=== PATIENT | male | born 1930 | race Caucasian/White ===

== ENCOUNTER 2016-08-30 10:42 | Inpatient (IN) | payer MEDICARE, OTHER ==
[~2016-08-30] VITALS: Ht 167.6 cm; Wt 86.8 kg
[2016-08-30] VITALS (11 sets, daily range): BP systolic 112–182; BP diastolic 65–101; PULSE 70–91; RESP 18–26; O2SAT 91–99
[~2016-08-30 10:42] MED LIST: AMLO10TA5; OMPR20CCR; VALS1TAB31; ZOC20
--- NOTE | 2016-08-30 10:44 | ED.REPORT ---
HPI-Dyspnea / Wheezing Date of Service Aug 30, 2016 ED Provider: Salomon Castillo Patient is an 86 year old male with a hx of prostate cancer who presents to the ED via EMS for respiratory distress onset this morning. He has had an upper respiratory infection for the last new days including a non-productive cough and increasing weakness. He denies chest pain, fever, or any other symptoms. He was given a DuoNeb en route with relief. He does not have a hx of CHF. On initial evaluation by EMS he had a room air saturation in the 70s with markedly dyspneic and diaphoretic. Some improvement with nebulized bronchodilators and oxygen, however with minimal exertion needed to get him onto the EMS gurney he had an acute respiratory decompensation and was started on CPAP. He improved rapidly on CPAP. On arrival here we were able to discontinue the CPAP and continue on supplement oxygen without decompensation. Not been having chest pain. Denies fevers or cough. Nursing Notes Stated Complaint: RESPIRATORY DISTRESS Chief Complaint: Respiratory Distress Nursing Notes Reviewed: Yes Allergies: Coded Allergies: No Known Allergies (Verified , 08/30/16) Scheduled Aspirin (Aspirin) 81 Mg Tablet 81 MG PO HS Azilsartan Med/Chlorthalidone 40-25 mg (Edarbyclor 40-25 mg) 1 Each Tablet 1 TABLET PO DAILY Metoprolol Succinate ER (Toprol XL) 25 Mg Tablet 25 MG PO DAILY Omeprazole (Omeprazole) 20 Mg Capsule.dr 20 MG PO DAILY Simvastatin (Simvastatin) 20 Mg Tablet 20 MG PO HS General Time Seen by MD: 10:43 Chief Complaint Shortness of breath Hx Obtained From: Patient, EMS Arrived By: Ambulance Sudden in Onset?: Yes Onset Occurred: 1 - 4 hours ago Symptom Duration: Since onset Past Medical History Past Medical History Prostate cancer Past Surgical History R shoulder Smoking History Former Smoker Ambulatory Status Independent Review of Systems Constitutional: Reports: Weakness - generalized, Denies: Fever Respiratory: Reports: Non-productive cough, Shortness of breath Cardiovascular: Denies: Chest pain Complete sys rev & neg: except as marked. Physical Exam Initial Vital Signs Vital Signs (First) Date Time Temp Pulse Resp B/P Pulse Ox O2 Delivery O2 Flow Rate FiO2 08/30/16 10:51 36.0 91 26 182/101 91 Room Air 08/30/16 11:16 2 Initial VS: Reviewed Head / Eyes: Atraumatic, Normocephalic Skin: Warm, Dry Neurologic: Alert, Oriented, Nonfocal Psychiatric: Mood/affect normal, Behavior normal, Normal thought content General/Constitutional: Awake, Alert Distress / Hydration: Positive: Distress mild Neck: Full range of motion Respiratory / Chest: No wheezing diffusely poor air movement diminish breath sounds on R Cardiovascular: Heart rate NL, Regular rhythm, Heart sounds NL, No gallop, No murmurs, No rubs Distant heart tones Skin: Color NL, Warm Color / Condition: Positive: Diaphoresis present Interpretation & Diagnostics Lab Results Interpretation Result Diagram: 08/30/16 1046 08/30/16 1046 Test 08/30/16 10:46 08/30/16 12:04 White Blood Count 11.0th/mm3 (3.8-10.1) Red Blood Count 4.69mil/mm3 (4.40-5.80) Hemoglobin 14.8g/dL (13.8-17.2) Hematocrit 42.9% (41.0-50.0) Mean Corpuscular Volume 91.5fL (81-100) Mean Corpuscular Hemoglobin 31.6pg (27.0-35.0) Mean Corpuscular Hemoglobin Concent 34.5% (32.0-37.0) Red Cell Distribution Width 14.1% (12.3-15.4) Platelet Count 188bil/L (150-400) Neutrophils (%) (Auto) 62.5% (40-74) Lymphocytes (%) (Auto) 26.2% (14-46) Monocytes (%) (Auto) 9.1% (4-12) Eosinophils (%) (Auto) 1.8% (0-5) Basophils (%) (Auto) 0.2% (0-3) D-Dimer 1.17mg/L FEU (<0.50) Sodium Level 135mEq/L (134-144) Potassium Level 4.8mEq/L (3.5-5.2) Chloride Level 95mEq/L (97-108) Carbon Dioxide Level 21mmol/L (18-29) Blood Urea Nitrogen 15mg/dL (8-27) Creatinine 0.97mg/dL (0.76-1.27) Estimat Glomerular Filtration Rate 78mL/min (>59) Glucose Level 154mg/dL (60-99) Calcium Level 9.4mg/dL (8.5-10.1) Total Bilirubin 0.6mg/dL (0.0-1.2) Aspartate Amino Transf (AST/SGOT) 25U/L (0-50) Alanine Aminotransferase (ALT/SGPT) 13U/L (0-44) Alkaline Phosphatase 97U/L (25-160) Troponin T 0.010ug/L (0.0-0.011) Pro-B-Type Natriuretic Peptide 4902pg/mL (0-486) Total Protein 7.2g/dL (6.4-8.4) Albumin 4.0g/dL (3.4-5.0) Urine Color Yellow (YELLOW) Urine Appearance Hazy (CLEAR,HAZY) Urine pH 6.5 (5.0-8.0) Urine Specific [place] 1.020 (1.003-1.035) Urine Protein 30mg/dL (NEG,TRACE) Urine Glucose (UA) Negativemg/dL (NEGATIVE) Urine Ketones 15mg/dL (NEGATIVE) Urine Occult Blood Negative (NEGATIVE) Urine Nitrite Negative (NEGATIVE) Urine Bilirubin Negative (NEGATIVE) Urine Urobilinogen 2.0mg/dL (NORMAL) Urine Leukocyte Esterase Negative (NEGATIVE) Urine RBC 0-2/hpf (0-2) Urine WBC 0-5/hpf (0-5) Urine Epithelial Cells Occasional/hpf (NONE-MOD) Urine Crystals None seen (NONE SEEN) Urine Bacteria Few/hpf (NONE-FEW) Urine Hyaline Casts None/lpf (NONE) Urine Granular Casts None seen (NONE SEEN) Urine Waxy Casts None seen (NONE SEEN) Urine Red Blood Cell Casts None seen (NONE SEEN) Urine White Blood Cell Casts None seen (NONE SEEN) Urine Mucus Present (None Seen) Urine Trichomonas None seen (NONE SEEN) Urine Yeast Few (NONE SEEN) Urine Culture Reflexed Not indicated Hold Urine Received (Received) Lab Results Interpretation: Seemingly normal Echo and myocardial perfusion study in 2014 ECG Interpretation ECG Interpretation: Sinus rate 82 ventricular premature complex RBBB inferior infarct, old Time: 11:10 Interpreted by: ED physician ABG Interpretation ABG Interpretation: pH 7.444 pCO2 40 pO2 74.4 cHCO3- 27.5 cBase 3.2 alkalotic with a normal CO2. Suggests a mixed process Exam Performed by: Allied health pract Exam Interpreted by: ED physician Indication: Respiratory distress X-Ray Chest Interpretation Chest Xray Interpretation: IMPRESSION: 1. Cardiomegaly with congestive heart failure. Possibility of superimposed or underlying pneumonia cannot be excluded. Dictated by: Michele Cintron M.D. on 08/30/2016 at 11:11 Approved by: Michele Cintron M.D. on 08/30/2016 at 11:13 View: Portable, 1 view Interpretation / Wet Read by: Interpret - Radiologist CT Chest Interpretation IMPRESSION: 1. Exam is negative for pulmonary embolic disease. 2. Diffuse pulmonary edema and moderate bilateral pleural effusions. 3. Atheromatous vascular disease with calcified, tortuous aorta and presence of coronary artery calcifications. No evidence of aortic dissection. The ascending aorta is borderline aneurysmal at 4.0 cm. Dictated by: Michele Cintron M.D. on 08/30/2016 at 13:26 Approved by: Michele Cintron M.D. on 08/30/2016 at 13:32 Study type: CT pulm angiogram Interpretation / Wet Read by: Interpret - Radiologist Re-Eval/Medical Decision Med Decision/Clinical Course 86-year-old male with new onset congestive failure. Initial troponin is negative. Given Lasix 20 mg IV and nitro paste is applied. Also received nebulized bronchodilators and initial stabilization. Respiratory symptoms have improved, he is tolerating DC of CPAP. Admitted to the hospitalist service. Re-Evaluation/Progress : Time of Eval: 12:08 )( Re-Eval Resp / Chest: No wheezing Re-Evaluation/Progress Note: Discussed plan for admission. Patient understands and agrees with plan. All questions addressed at this time. Consultation : Referral / Consult Name: Fahad Gregg MD Consulted With: Hospitalist Call Returned at: 14:27 [employer] Instructor: Will see patient, Agrees with eval, Agrees with plan, Accepts admit Note: Discussed pt's case. Accepts admit. Counseled Regarding: Diagnosis, Lab results, Need for admission Discharge & Departure Impression: Primary Impression: Dyspnea Dyspnea type: shortness of breath Qualified Code: R06.02 - Shortness of breath Disposition: ADMITTED TO HOSPITAL Discharge Condition All VS Reviewed: Yes Condition: Stable Referrals: Hema Ramirez MD (PCP) [facility] (Family) Scribe Attestation Portions of this note were transcribed by Latrice Curtis. I, Dr. Castillo personally performed the history, physical exam and medical decision-making; I reviewed and confirmed the accuracy of the information in the transcribed note. Signed by: Latrice Curtis 08/30/2016, [id number] copies to: Hema Ramirez MD, Donald L MD Aug 30, 2016 10:44 LATRICE CURTIS Aug 30, 2016 10:51
[2016-08-30] MEDS ORDERED: Albuterol-Ipratropium 3 mL Inhalation Solution ONE (10:50)
[2016-08-30] MEDS ORDERED: Albuterol-Ipratropium 3 mL Inhalation Solution NEB ONE (10:50)
[2016-08-30] MEDS ORDERED: Albuterol 2.5 mg/3 mL Inhalation Solution NEB ONE ×2 (10:50)
[2016-08-30 10:57] LABS: BASOPHILS % (AUTO) 0.2 % (0-3); EOSINOPHILS % (AUTO) 1.8 % (0-5); MONOCYTES % (AUTO) 9.1 % (4-12); Mean Corpuscular Hemoglobin 31.6 pg (27.0-35.0); Mean Corpuscular Volume 91.5 fL (81-100); NEUTROPHILS % (AUTO) 62.5 % (40-74); Platelet Count 188 bil/L (150-400)
--- NOTE | 2016-08-30 11:15 | DRSVH ---
PROCEDURE: X-RAY CHEST ONE VIEW, PORTABLE ([id number]) INDICATIONS: SOB TECHNIQUE: One view of the chest was acquired. COMPARISON: 09/20/2007 FINDINGS: Surgical changes and devices: None. Lungs and pleura: No pleural effusions or pneumothorax. There is diffuse increase in interstitial ma rkings with presence of septal lines at the lung bases, consistent with pulmonary edema. Mediastinum: Mediastinal contours appear normal. Heart size is mildly enlarged. Aortic calcificatio ns and tortuosity. Bones and chest wall: No suspicious bony lesions. Overlying soft tissues appear unremarkable. IMPRESSION: 1. Cardiomegaly with congestive heart failure. Possibility of superimposed or underlying pneumonia ca nnot be excluded. Dictated by: Michele Cintron M.D. on 08/30/2016 at 11:11 Approved by: Michele Cintron M.D. on 08/30/2016 at 11:13
[2016-08-30 11:22] LABS: TROPONIN T 0.01 ug/L (0.0-0.011)
[2016-08-30] MEDS ORDERED: ASPI-973 PO (11:30)
[2016-08-30] MEDS ORDERED: AZIL1TAB3 PO (11:30)
[2016-08-30] MEDS ORDERED: METO25TA3 PO (11:30)
[2016-08-30] MEDS ORDERED: Nitroglycerin 2% 1 Gm Ointment TOPICAL SCH (11:40)
[2016-08-30] MEDS ORDERED: Furosemide 10 mg/mL 2 mL Inj IVPUSH ONE ×2 (11:40→20:00)
--- NOTE | 2016-08-30 12:17 | ABG ---
DateTimeAnalyzed 12:09:32 -_ pH ____7.444 - 7.350 7.450 pCO2 ___40.2__ -mmHg 35.0 45.0 pO2 ___74.4__ -mmHg 69.0 116 HCO3- ___27.5__ -mmol/L 22.0 26.0 ABE ____3.2__ -mmol/L tHb ___13.8__ -g/dL O2Hb ___93.9__ -% COHb ____1.5__ -% 1.5 MetHb ____0.0__ -% sO2 ___95.2__ -% FIO2 ___21.0__ -% Drawn By RS - Date/Time Notified____ 12:17:00 -_ Notified By RS - Notified Whom SLACK, DON - K+ ____3.3__ -mmol/L tO2 ___18.2__ -Vol% Balbir test N/A -
--- NOTE | 2016-08-30 13:34 | DRSVH ---
PROCEDURE: CT ANGIO CHEST PULMONARY EMBOLISM ([id number]) INDICATIONS: dyspnea elevated dimer TECHNIQUE: After the administration of intravenous contrast, 2 mm thick sections acquired from the pulmonary api donald to the posterior costophrenic angles. 3-dimensional maximum intensity projection (MIP) coronal a nd sagittal reformats were then acquired through the thorax. For radiation dose reduction, the follo wing was used: automated exposure control, adjustment of mA and/or kV according to patient size. COMPARISON: Chest 08/30/2016 FINDINGS: Image quality: Excellent. Pulmonary arteries: Pulmonary arteries are normal in size, and demonstrate no intraluminal filling d efects to suggest central pulmonary embolism. Lungs and pleura: Bilateral pulmonary edema and moderate bilateral pleural effusions Mediastinum: Heart size is normal, without pericardial effusion. Coronary artery calcifications. No mediastinal or hilar adenopathy. Thoracic aorta is 4.0 cm in caliber, normal in enhancement. Esoph jone is normal in caliber, without hiatal hernia. Bones and chest wall: No suspicious bony lesions. Ribs and thoracic spine appear intact throughout. Thyroid gland appear normal. No axillary or supraclavicular adenopathy. Abdomen: Visualized upper abdominal solid organs appear normal in the early arterial phase of enhanc ement. Splenic calcifications. IMPRESSION: 1. Exam is negative for pulmonary embolic disease. 2. Diffuse pulmonary edema and moderate bilateral pleural effusions. 3. Atheromatous vascular disease with calcified, tortuous aorta and presence of coronary artery calci fications. No evidence of aortic dissection. The ascending aorta is borderline aneurysmal at 4.0 cm. Dictated by: Michele Cintron M.D. on 08/30/2016 at 13:26 Approved by: Michele Cintron M.D. on 08/30/2016 at 13:32
[2016-08-30] MEDS ORDERED: OMEP20CA11 PO (13:36)
[2016-08-30] MEDS ORDERED: SIMV20TA4 PO (13:36)
[2016-08-30] MEDS ORDERED: AZIL1TAB2 PO (13:36)
[2016-08-30 13:57] LABS: APPEARANCE,URINE HAZY (CLEAR,HAZY); COLOR,URINE YELLOW (YELLOW); OCCULT BLOOD,URINE NEGATIVE (NEGATIVE); PH,URINE 6.5 (5.0-8.0)
[2016-08-30 13:58] LABS: YEAST,URINE FEW (NONE SEEN)
[2016-08-30] MEDS ORDERED: Ondansetron 2 mg/mL 2 mL Inj IVPUSH PRN (14:30)
--- NOTE | 2016-08-30 15:34 | PCM.HPMED ---
Subjective Date of Service Aug 30, 2016 Primary Provider: Admitting Physician: Fahad Gregg MD Primary Care Physician: Hema Ramirez MD Attending Physician: Fahad Gregg MD Chief Complaint: sudden onset SOB History of Present Illness: 86yo healthy community dwelling male with HTN, HLD, GERD, hx of prostate CA, no cardiac dz p/w acute onset difficulty breathing starting this morning Patient was usual state of health until 3-4 days ago, started having sore throat , stuffy nose initially, then it developed to dry cough. Patient denied fever, chills. Patient thought that he was recovering from flu as yesterday patient was doing okay without any difficulty breathing, patient had good appetite, eating well. This morning when he woke up, patient was in acute distress because of difficulty breathing, asked her to call his primary doctor, but unable to reach, as symptom persist, called 911. EMS reported that patient was hypoxic to 70%, severely diaphoretic with labored breathing, put him on CPAP. pt denied chest pain, nausea, vomiting. ED VS initially still mildly hypoxic 91% on room air, hypertensive to 180s, [id number], afebrile. pt received multiple nebulizer treatment, lasix 20mg iv. nitroglycerin paste was placed. CT and U chest obtained due to concern for PE, returned to negative PE but it showed bilateral pleural effusion and pulmonary edema. During her interview in ED, patient looked comfortable without labored breathing , patient thinks that combination of left leg treatment and Lasix helped him a lot. Patient denied having cardiac disease in the past, had stress test a few years ago by Dr. Cuenca, because of abnormal EKG, the result was normal. Patient is taking all of his medicine regularly, denied taking pills to smoking. Patient denied gaining weight, rather patient lowest weight delivery early with healthy diet and exercise. Patient is using one pillow, having no problems sleeping in the night, denied coughing at night. Review of Systems: Pertinent positives as noted in history of present illness. All other systems were reviewed and are negative Allergies Coded Allergies: No Known Allergies (Verified , 08/30/16) PMH As described above in history of present illness Surgical History Prostatectomy Appendectomy Family History Father had carcinoma on his back Social History Hx Alcohol Use: Yes ("when I want it") Smoking Status: Former Smoker Additional Information Lives with Exam Vital Signs Vital Sign - Last Date Time Temp Pulse Resp B/P Pulse Ox O2 Delivery O2 Flow Rate FiO2 08/30/16 14:09 88 24 112/72 94 Nasal Cannula 4 08/30/16 10:51 36.0 Exam NAD, comfortably laying down on the bed no JVD, MMM, no LAD RRR, nl s1, s2 no mrg Bibasilar crackles, no wheezing S,ND, distended,normoactive BS+ warm, no edema, pulses 2/2 Lab and Diagnostics Result Diagram: 08/30/16 1046 08/30/16 1046 Assessment & Plan 86yo healthy community dwelling male with HTN, HLD, GERD, hx of prostate CA, no cardiac dz p/w acute onset difficulty breathing starting this morning Acute, active Acute respiratory failure,POA, secondary to pulmonary edema, effusion likely due to new onset CHF and/or viral URI, troponinx1 was negative. last TTE 2014 showed normal EF, no sever valvular dz, seen by , no further w/u recommended. [id number], Patient received 1 dose of Lasix and bronchodilator treatment responded well. No s/s of bacterial PNA. CTA of chest was negative for PE. -will try lasix 20mg iv one more dose, likely switch to oral tomorrow based on response, keep i/o -telemetry -TTE -respiratory PCR -O2 supplement target SpO2>95%, BD tx albuterol q4 prn -continue aspirin. Chronic, stable HTN, initially hypertensive due to acute respiratory distress, resume metoprolol XL 25 tomorrow HLD, resume statin hx of prostate cancer, presumed stable chronic etoh use, monitor for withdrawal, currently stable dispo:Patient will be admitted with inpatient status with expectation of inpatient therapy for more than 2 midnights diet:general dvt ppx:LMWH Full code Time spent 65 minutes Fahad Gregg MD Aug 30, 2016 15:34
[2016-08-30] MEDS ORDERED: Albuterol 2.5 mg/3 mL Inhalation Solution NEB PRN (15:55)
--- NOTE | 2016-08-30 17:41 | NUR ---
Admit to the floor Pt admitted to the floor at 1615. He was brought by ED staff to the floor by neo. He was able to stand to transfer to the bed and able to stand on the scale. His was present at the bedside. He denied pain. He is alert and oriented. He was put on tele monitoring.
[2016-08-31 03:48] VITALS: BP 116/64; PULSE 59; RESP 20; O2SAT 95
[2016-08-31 05:26] VITALS: PULSE 57; O2SAT 98
--- NOTE | 2016-08-31 05:50 | NUR ---
Tele / O2 / Lung Sounds /CHF Pt denies chest pain, Tele SB-SR with IVCD and occ PACs, HR upper 50s to 70s per [employer] Technician. Pt denies SOB, O2 titrated between 4-6L to keep sats > 94-95%. Pt placed on continuous pulse oximetry to better watch O2 saturations. Bilateral lung sounds are diminished w/o crackles or rhonchi heard per auscultation. Pt has an intermittent course, congested productive cough, no sputum seen, Pt states that he has been swallowing whatever comes up. VS stable. Pt given Heart Failure booklet.
[2016-08-31 06:06] LABS: BASOPHILS % (AUTO) 0.2 % (0-3); EOSINOPHILS % (AUTO) 1.8 % (0-5); MONOCYTES % (AUTO) 13.3 % (4-12); Mean Corpuscular Hemoglobin 31.4 pg (27.0-35.0); Mean Corpuscular Volume 93.8 fL (81-100); NEUTROPHILS % (AUTO) 65.7 % (40-74); Platelet Count 142 bil/L (150-400)
[2016-08-31 06:14] LABS: Magnesium 1.8 mg/dL (1.6-2.6); Phosphorus 3.5 mg/dL (2.5-4.9)
[2016-08-31 08:00] VITALS: BP 136/73; PULSE 59; RESP 16; O2SAT 99
[2016-08-31] MEDS: MeTOProlol XL 25 mg ER24 Tablet PO SCH ×2 (08:30→08:43)
[2016-08-31 10:56] VITALS: PULSE 62
[2016-08-31 12:46] VITALS: BP 165/86; PULSE 70; RESP 20; O2SAT 97
[2016-08-31] MEDS ORDERED: Furosemide 10 mg/mL 2 mL Inj IVPUSH ONE (13:35)
--- NOTE | 2016-08-31 14:27 | PCM.DIMED ---
Discharge Instructions Date of Service Aug 31, 2016 Dates of Hospitalization Aug 30, 2016 at 14:36 Discharge Diagnosis Discharge Diagnosis 1. Acute diastolic heart failure, improved 2. Essential hypertension 3. Hyperlipidemia Diet Discharge Diet: Low fat, Low Sodium, Heart Healthy Activity Discharge Activity: Limited until seen by PCP Call your provider Call your provider for: Shortness of breath Patient Instructions Follow-up Provider: Hema Ramirez MD Follow-up with PCP in: 1 week Balbir Bowman MD Aug 31, 2016 14:27
[2016-08-31] MEDS ORDERED: FURO-129 PO (14:28)
--- NOTE | 2016-08-31 16:19 | NUR ---
Social Work Note: Initial Assessment/Discharge/Multidisciplinary Rounds Data& Assessment: EMR reviewed. Pt was discussed in AM rounds today, per MD pt is medically ready to discharge home via POV. SW met with pt and pt at bedside to confirm discharge plan and assess for any unmet needs. SW role explained and D/C planning checklist provided. Thang Gibbons is a 86 year old male admitted on 08/30/2016 for dyspnea. Per MD pt is medically improved and ready to discharge. Pt lives in [facility] apartments with his spouse and is independent at baseline with all ADL"s with no DME needs. Pt independent with self care during this hospitalization. Pt drives at baseline and does not have HH hx. Pt did go to [facility] post heart surgery 6 years ago. Pt is a [employer] but not service connected. Pt does not have LTC insurance. Pt has DPOA/AD paperwork completed. Pt has Medicare and [employer] insurance coverage and sees Dr. Daugherty for primary care. Pt to transport pt home today. MD does not identify any concerns with pt capacity for self care. Pt and pt denies any other needs. No other discharge needs or MD orders identified. Plan: Per pt is medically ready to discharge home via POV. Pt and pt denies any other needs. No other discharge needs or MD orders identified. REGGIE Tuttle Addendum: 08/31/16 at 1624 by ONIEL RILEY Amended: Links added.
--- NOTE | 2016-08-31 16:21 | NUR ---
Discharge Pt discharged at 1605. He was given discharge instructions and instructions for follow up care. He confirmed understanding of these instructions. His was present at the bedside. He was given education on congestive heart failure. He was given a prescription to take with him. An appointment was made for him to follow up with his primary care doctor. He was brought by wheelchair to the exit by staff where his would be driving him home.
--- NOTE | 2016-08-31 16:40 | DRSVH ---
[facility] [address] [place] [address] Echocardiogram Report Name: KVNG MENJIVAR WStudy Date: Height: 66 in Hospital Exam Location: [facility] Weight: 185 lb Gender: Male BSA: 1.9 m2 : 1930 Age: 86 yrs BP: 116/64 mmHg Reason For Study: Dyspnea Ordering Physician: HOSPITALIST SVHPerformed By: Pk Gustafson Referring Physician: Clarence Cuenca Interpretation Summary Report prepared by Madeline Shah Left ventricular ejection fraction is estimated to be 45%. There is a mild dyssynchronous contraction pattern, consistent with a conduction abnormality. Inferolateral and lateral wall hypokinesis, new since last exam. There is mild mitral regurgitation. The ascending aorta is mildly enlarged. Procedure: A two-dimensional transthoracic echocardiogram with color flow and Doppler was performed. Images from the parasternal window were difficult to obtain and are suboptimal in quality. The study quality was technically adequate. The heart rate ranged between 70-81 bpm during the study. Left Ventricle: The left ventricle is normal in size, wall thickness, and systolic function without any focal wall motion abnormalities. There is borderline concentric left ventricular hypertrophy. Left ventricular ejection fraction is estimated to be 45%. There is a mild dyssynchronous contraction pattern, consistent with a conduction abnormality. Inferolateral and lateral wall hypokinesis, new since last exam. The E/A ratio is reversed with an elevated E/E', suggesting impaired early relaxation of the left ventricle with possible increased filling pressures. Right Ventricle: The right ventricle is normal in size and function. Atria: The left atrium is moderately dilated. The right atrium is borderline dilated. The interatrial septum is intact with no evidence for an atrial septal defect. Mitral Valve: The mitral valve is normal in structure and function. There is mild mitral regurgitation. Aortic Valve: The aortic valve opens well. Overriding aorta is noted on previous exam. There is mild aortic regurgitation. This is unchanged compared to the previous study. Tricuspid Valve: The tricuspid valve is normal in structure and function. There is a trace or physiologic amount of tricuspid regurgitation. Pulmonary artery pressures cannot be estimated because of the lack of a measurable TR jet velocity. Pulmonic Valve: The pulmonic valve leaflets are thin and pliable; valve motion is normal. There is mild to moderate pulmonic regurgitation. Great Vessels: The aortic root is mildly dilated. The ascending aorta is mildly enlarged. The pulmonary artery is normal size. The IVC is of normal diameter and collapses greater than 50% with a sniff. This suggests a low right atrial pressure of 3 mm Hg. Pericardium/ Pleura There is no pericardial effusion. There is no pleural effusion. MMode/2D Measurements & Calculations LVIDd: 4.2 cm LA A2 area RA long axis LVOT diam EPSS: 1.1 cm IVSd: 1.1 cm RA area Ao root diam LVPWd: 1.1 cm LA A4 area : 21.6 cm asc Aorta Diam LA length (vol) RA vol: 62.0 ml RA LA vol: 80.6 ml : 32.1 mm2 LA vol index IVC diam: 1.7 cm LV barriga. diameter/BSA RVD1 (basal) RVD2 (mid) TAPSE: 1.4 cm (cm/m^2): 2.2 : 3.7 cm Doppler Measurements & Calculations Ao V2 max MV E max leonardo MV E/A: 0.80 PA V2 max : 140.9 cm/sec : 71.2 cm/sec Med Peak E' Leonardo : 83.4 cm/sec Ao max PG MV A max leonardo PA mean PG : 7.9 mmHg : 88.4 cm/sec E/E' med: 26.5 Ao mean PG MV P1/2t: 72.0 msec Lat Peak E' Leonardo PA Accel Time : 0.03 sec LVOT Max Leonardo E/E' lat: 11.7 : 118.0 cm/sec E/e' average TONEY(I,D): 4.1 cm sev ratio MV dec time MV P1/2t max leonardo Ao V2 mean LV V1 max PG : 0.24 sec : 96.2 cm/sec MVA(P1/2t): 3.1 cm2 Ao V2 VTI: 22.4 cm LV V1 VTI TONEY(V,D): 3.6 cm2 : 20.9 cm PA V2 mean TONEY indexed to BSA : 64.1 cm/sec (cm^2/m^2): 2.1 PA pr(Accel) : 59.0 mmHg Electronically signed by: Hosea Caceres on Reading Physician:08/31/2016 04:39 PM
--- NOTE | 2016-08-31 16:46 | PCM.DC.MED ---
Discharge Summary Date of Service Aug 31, 2016 Dates of Hospitalization Date of Hospital Admission Aug 30, 2016 at 14:36 Date of Discharge: Aug 31, 2016 Providers: Admitting Physician: Fahad Gregg MD Primary Care Physician: Hema Ramirez MD Attending Physician: Balbir Mann MD Diagnosis at Time of Discharge Diagnosis at Time of Discharge 1. Acute diastolic heart failure, improved 2. Essential hypertension 3. Hyperlipidemia Consultations None Procedures Cardiac Echo Impression Pending at time of discharge. Patient did not want to wait for this result post. He agrees to short-term follow-up with his primary care physician Dr. Nash with [facility]. Brief History 86yo healthy community dwelling male with HTN, HLD, GERD, hx of prostate CA, no cardiac dz p/w acute onset difficulty breathing starting this morning Patient was usual state of health until 3-4 days ago, started having sore throat , stuffy nose initially, then it developed to dry cough. Patient denied fever, chills. Patient thought that he was recovering from flu as yesterday patient was doing okay without any difficulty breathing, patient had good appetite, eating well. This morning when he woke up, patient was in acute distress because of difficulty breathing, asked her to call his primary doctor, but unable to reach, as symptom persist, called 911. EMS reported that patient was hypoxic to 70%, severely diaphoretic with labored breathing, put him on CPAP. pt denied chest pain, nausea, vomiting. ED VS initially still mildly hypoxic 91% on room air, hypertensive to 180s, [id number], afebrile. pt received multiple nebulizer treatment, lasix 20mg iv. nitroglycerin paste was placed. CT and U chest obtained due to concern for PE, returned to negative PE but it showed bilateral pleural effusion and pulmonary edema. During her interview in ED, patient looked comfortable without labored breathing , patient thinks that combination of left leg treatment and Lasix helped him a lot. Patient denied having cardiac disease in the past, had stress test a few years ago by Dr. Cuenca, because of abnormal EKG, the result was normal. Patient is taking all of his medicine regularly, denied taking pills to smoking. Patient denied gaining weight, rather patient lowest weight delivery early with healthy diet and exercise. Patient is using one pillow, having no problems sleeping in the night, denied coughing at night. Hospital Course 86yo healthy community dwelling male with HTN, HLD, GERD, hx of prostate CA, no cardiac dz p/w acute onset difficulty breathing starting this morning Acute, active Acute respiratory failure,POA, secondary to pulmonary edema, effusion likely due to new onset CHF and/or viral URI, troponinx1 was negative. last TTE 2014 showed normal EF, no sever valvular dz, seen by , no further w/u recommended. [id number], Patient received 1 dose of Lasix and bronchodilator treatment responded well. No s/s of bacterial PNA. CTA of chest was negative for PE. -will try lasix 20mg iv one more dose, likely switch to oral tomorrow based on response, keep i/o -telemetry -TTE -respiratory PCR -O2 supplement target SpO2>95%, BD tx albuterol q4 prn -continue aspirin. Chronic, stable HTN, initially hypertensive due to acute respiratory distress, resume metoprolol XL 25 tomorrow HLD, resume statin hx of prostate cancer, presumed stable chronic etoh use, monitor for withdrawal, currently stable dispo:Patient will be admitted with inpatient status with expectation of inpatient therapy for more than 2 midnights diet:general dvt ppx:LMWH Full code Exam Vital Signs (Last) Date Time Temp Pulse Resp B/P Pulse Ox O2 Delivery O2 Flow Rate FiO2 08/31/16 12:46 36.9 70 20 165/86 97 Nasal Cannula 2.00 Exam Patient was seen and examined the day of discharge Test 08/30/16 10:46 08/30/16 12:04 08/31/16 05:35 D-Dimer 1.17mg/L FEU (<0.50) Troponin T 0.010ug/L (0.0-0.011) Pro-B-Type Natriuretic Peptide 4902pg/mL (0-486) Urine Color Yellow (YELLOW) Urine Appearance Hazy (CLEAR,HAZY) Urine pH 6.5 (5.0-8.0) Urine Specific [place] 1.020 (1.003-1.035) Urine Protein 30mg/dL (NEG,TRACE) Urine Glucose (UA) Negativemg/dL (NEGATIVE) Urine Ketones 15mg/dL (NEGATIVE) Urine Occult Blood Negative (NEGATIVE) Urine Nitrite Negative (NEGATIVE) Urine Bilirubin Negative (NEGATIVE) Urine Urobilinogen 2.0mg/dL (NORMAL) Urine Leukocyte Esterase Negative (NEGATIVE) Urine RBC 0-2/hpf (0-2) Urine WBC 0-5/hpf (0-5) Urine Epithelial Cells Occasional/hpf (NONE-MOD) Urine Crystals None seen (NONE SEEN) Urine Bacteria Few/hpf (NONE-FEW) Urine Hyaline Casts None/lpf (NONE) Urine Granular Casts None seen (NONE SEEN) Urine Waxy Casts None seen (NONE SEEN) Urine Red Blood Cell Casts None seen (NONE SEEN) Urine White Blood Cell Casts None seen (NONE SEEN) Urine Mucus Present (None Seen) Urine Trichomonas None seen (NONE SEEN) Urine Yeast Few (NONE SEEN) Urine Culture Reflexed Not indicated Hold Urine Received (Received) White Blood Count 6.2th/mm3 (3.8-10.1) Red Blood Count 3.70mil/mm3 (4.40-5.80) Hemoglobin 11.6g/dL (13.8-17.2) Hematocrit 34.7% (41.0-50.0) Mean Corpuscular Volume 93.8fL (81-100) Mean Corpuscular Hemoglobin 31.4pg (27.0-35.0) Mean Corpuscular Hemoglobin Concent 33.4% (32.0-37.0) Red Cell Distribution Width 13.8% (12.3-15.4) Platelet Count 142bil/L (150-400) Neutrophils (%) (Auto) 65.7% (40-74) Lymphocytes (%) (Auto) 19.0% (14-46) Monocytes (%) (Auto) 13.3% (4-12) Eosinophils (%) (Auto) 1.8% (0-5) Basophils (%) (Auto) 0.2% (0-3) Sodium Level 139mEq/L (134-144) Potassium Level 3.7mEq/L (3.5-5.2) Chloride Level 97mEq/L (97-108) Carbon Dioxide Level 29mmol/L (18-29) Blood Urea Nitrogen 14mg/dL (8-27) Creatinine 1.06mg/dL (0.76-1.27) Estimat Glomerular Filtration Rate 71mL/min (>59) Glucose Level 118mg/dL (60-99) Calcium Level 8.7mg/dL (8.5-10.1) Phosphorus Level 3.5mg/dL (2.5-4.9) Magnesium Level 1.8mg/dL (1.6-2.6) Total Bilirubin 0.6mg/dL (0.0-1.2) Aspartate Amino Transf (AST/SGOT) 14U/L (0-50) Alanine Aminotransferase (ALT/SGPT) 9U/L (0-44) Alkaline Phosphatase 74U/L (25-160) Total Protein 5.5g/dL (6.4-8.4) Albumin 3.4g/dL (3.4-5.0) Discharge Medications Discharge Medications Aspirin (Aspirin) 81 Mg Tablet 81 MG PO HS (Reported) Azilsartan Med/Chlorthalidone 40-25 mg (Edarbyclor 40-25 mg) 1 Each Tablet 1 TABLET PO DAILY (Reported) Furosemide (Lasix) 20 Mg Tablet 20 MG PO DAILY Prescribed by: BALBIR MANN MD Metoprolol Succinate ER (Toprol XL) 25 Mg Tablet 25 MG PO DAILY (Reported) Omeprazole (Omeprazole) 20 Mg Capsule.dr 20 MG PO DAILY (Reported) Simvastatin (Simvastatin) 20 Mg Tablet 20 MG PO HS (Reported) Followup Plan Disposition: Home Discharge Diet: Low fat, Low Sodium, Heart Healthy Discharge Activity: Limited until seen by PCP Follow-up Provider: Hema Ramirez MD Follow-up with PCP in: 1 week Time spent 40 minutes Balbir Mann MD Aug 31, 2016 16:46
== END 2016-08-31 16:06 | disposition home or self-care (01) | DRG 291 ==
LOC: SED 10:42 → PCC 14:36
PROVIDERS: ADMIT Internal Medicine; ATTEND Hospitalist
PROC: 4A033R1 Measurement of Arterial Saturation, Peripheral, Percutaneous Approach (ICD-10-PCS; principal; 2016-08-30)
DX: I50.31 Acute diastolic (congestive) heart failure (principal); J96.01 Acute respiratory failure with hypoxia; I10 Essential (primary) hypertension; K21.9 Gastro-esophageal reflux disease without esophagitis; Z85.46 Personal history of malignant neoplasm of prostate; Z87.891 Personal history of nicotine dependence